=== PATIENT | male | born 1960 | race Caucasian/White ===

== ENCOUNTER 2017-09-04 14:36 | Observation (INO) ==
[2017-09-04] MEDS ORDERED: ACETAMINOPHEN 325 MG TABLET PO PRN (14:47)
[2017-09-04] MEDS ORDERED: ONDANSETRON 4 MG/2 ML VIAL IV PRN (14:47)
[2017-09-04] MEDS ORDERED: DEXTROSE 50% 25 GM/50 ML VIAL IV PRN (14:47)
[2017-09-04] MEDS ORDERED: GLUCAGON 1 MG VIAL IM PRN (14:47)
[2017-09-04] MEDS ORDERED: ZIPRASIDONE 20 MG/1 ML VIAL IM ONE (15:57)
[2017-09-04] MEDS ORDERED: hydrALAZINE 20 MG/1 ML VIAL IV PRN (16:36)
[2017-09-04 16:55] LABS: Basophils # 0.1 10*3/uL (0.0-0.2); Basophils % 0.9 % (0.0-0.8); Eosinophils # 0.3 10*3/uL (0.0-0.87); Eosinophils % 4.6 % (0.00-10.9); Hematocrit 46.6 VOL% (42.0-52.0); Hemoglobin 15.7 GM/DL (14.0-18.0); Immature Granulocytes % 0.1 %; Immature Granulocytes Absolute 0.01 #; Lymphocytes # 2.2 10*3/uL (1.4-4.0); Lymphocytes % 32.5 % (21.2-54.2); Mean Corpuscular HGB Conc 33.7 GM/DL (32-36); Mean Corpuscular Hemoglobin 29 PG (27-34); Mean Corpuscular Volume 86.6 FL (87-102); Mean Platelet Volume 10.3 FL (9.6-12.0); Monocytes # 0.6 10*3/uL (0.11-0.8); Monocytes % 8.5 % (1.7-12.7); Neutrophils # 3.6 10*3/uL (1.4-7.4); Neutrophils % 53.4 % (38.7-73.9); Platelet Count 237 T/CUMM (130-400); Red Blood Count 5.38 MC/CUMM (3.8-5.5); Red Cell Distribution Width 13.3 % (9.3-17.3); White Blood Count 6.8 T/CUMM (4-12)
[2017-09-04] MEDS: DOCUSATE SODIUM 100 MG CAPSULE PO SCH ×2 (17:22→21:27)
[2017-09-04] MEDS: PANTOPRAZOLE 40 MG TABLET PO SCH (17:23)
[2017-09-04] MEDS: INSULIN LISPRO 100 UNIT/ML SUBCUT SCH ×2 (17:25→23:44)
[2017-09-04 17:42] LABS: Alanine Aminotransferase 36 U/L (16-61); Albumin 3.5 G/DL (3.4-5.0); Alkaline Phosphatase 81 U/L (45-117); Aspartate Amino Transferase 13 U/L (0-37); Bilirubin,Total < 0.39 MG/DL (0.2-1.0); Blood Urea Nitrogen 15 MG/DL (7-18); Calcium 8.6 MG/DL (8.5-10.1); Glucose 64 MG/DL (74-106); Osmolality,Calculated 279.3 MOS/KG (273-304); Potassium 3.6 MMOL/L (3.5-5.1); Sodium 141 MMOL/L (136-145); Total Protein 6.8 G/DL (6.4-8.3)
[2017-09-04] MEDS ORDERED: AMITRIPTYLINE 25 MG TABLET PO SCH (21:00)
[2017-09-04] MEDS ORDERED: chlorproMAZINE INJ 25 MG in SODIUM CHLORIDE 0.9% 100 ML IV ONE (21:00)
[2017-09-04] MEDS ORDERED: METOPROLOL SUCCINATE XL 50 MG TABLET PO SCH (21:00)
[2017-09-04] MEDS: PITAVASTATIN 2 MG TABLET PO SCH (21:29)
[2017-09-04] MEDS: CILOSTAZOL 50 MG TABLET PO SCH (21:29)
[2017-09-05] MEDS: GLIMEPIRIDE 2 MG TABLET PO SCH (08:46)
[2017-09-05] MEDS: DOCUSATE SODIUM 100 MG CAPSULE PO SCH ×2 (08:46→20:33)
[2017-09-05] MEDS: PANTOPRAZOLE 40 MG TABLET PO SCH (08:46)
[2017-09-05] MEDS: INSULIN LISPRO 100 UNIT/ML SUBCUT SCH ×4 (08:51→20:35)
[2017-09-05] MEDS ORDERED: KETOROLAC 10 MG TABLET PO SCH (09:00)
[2017-09-05] MEDS ORDERED: VALSARTAN 80 MG TABLET PO SCH (09:00)
[2017-09-05] MEDS: SUMAtriptan 6 MG/0.5 ML VIAL SUBCUT PRN (09:25)
[2017-09-05 13:35] LABS: PT Patient Result 10.2 SECS
[2017-09-05] MEDS ORDERED: METOPROLOL SUCCINATE XL 100 MG TABLET PO SCH (15:43)
[2017-09-05] MEDS ORDERED: AMITRIPTYLINE 25 MG TABLET PO SCH (15:44)
[2017-09-05] MEDS: PITAVASTATIN 2 MG TABLET PO SCH (20:33)
[2017-09-05] MEDS: CILOSTAZOL 50 MG TABLET PO SCH (20:33)
[2017-09-06] MEDS: SUMAtriptan 6 MG/0.5 ML VIAL SUBCUT PRN (05:53)
[2017-09-06] MEDS: INSULIN LISPRO 100 UNIT/ML SUBCUT SCH ×3 (07:52→16:03)
[2017-09-06] MEDS: DOCUSATE SODIUM 100 MG CAPSULE PO SCH (08:37)
[2017-09-06] MEDS: PANTOPRAZOLE 40 MG TABLET PO SCH (08:37)
[2017-09-06] MEDS: GLIMEPIRIDE 2 MG TABLET PO SCH (08:37)
[2017-09-06 15:54] VITALS: BP 144/88
== END 2017-09-06 17:53 | disposition home or self-care (01) ==
LOC: N.4E
PROVIDERS: ADMIT Family Medicine; ATTEND Family Medicine

== ENCOUNTER 2019-02-19 09:06 | Inpatient (IN) ==
[~2019-02-19 09:06] MED LIST: AZILSARTAN MED CHLORTHALIDONE PO SCH; CEFUROXIME INJ 1,500 MG in SYRINGE 1 EACH IV ONE; DEXTROSE 50% 25 GM/50 ML VIAL IV PRN; GLUCAGON 1 MG VIAL IM PRN; NITROGLYCERIN SL 0.4 MG TABLET SL PRN; ONDANSETRON 4 MG TABLET PO PRN; PANTOPRAZOLE 40 MG TABLET PO PRN
[2019-02-19] MEDS ORDERED: CLORAZEPATE 3.75 MG TABLET PO PRN (10:38)
[2019-02-19] MEDS: ASCORBIC ACID 500 MG TABLET PO SCH ×3 (10:54→21:58)
[2019-02-19] MEDS: FINASTERIDE 5 MG TABLET PO SCH (10:54)
[2019-02-19 11:15] LABS: Basophils # 0.1 10*3/uL (0.0-0.2); Basophils % 0.6 % (0.0-0.8); Eosinophils # 0.3 10*3/uL (0.0-0.87); Eosinophils % 3.7 % (0.00-10.9); Hematocrit 49.6 VOL% (42.0-52.0); Immature Granulocytes % 0.2 %; Immature Granulocytes Absolute 0.02 #; Lymphocytes # 1.8 10*3/uL (1.4-4.0); Lymphocytes % 22.7 % (21.2-54.2); Mean Corpuscular HGB Conc 34.3 GM/DL (32-36); Mean Corpuscular Volume 89.4 FL (87-102); Mean Platelet Volume 10.3 FL (9.6-12.0); Monocytes % 6.5 % (1.7-12.7); Neutrophils % 66.3 % (38.7-73.9); Platelet Count 278 T/CUMM (130-400); Red Blood Count 5.55 MC/CUMM (3.8-5.5); Red Cell Distribution Width 12.9 % (9.3-17.3)
[2019-02-19] MEDS: ASPIRIN EC 81 MG TABLET PO SCH (11:18)
[2019-02-19] MEDS: CHLORHEXIDINE 0.12% ORAL RINSE 60 ML BOTTLE SWISH/SPIT SCH ×2 (11:20→21:58)
[2019-02-19] MEDS: SIMVASTATIN 20 MG TABLET PO SCH (11:23)
[2019-02-19 11:30] LABS: ABG Base Excess -0.1 MMOL/L (-2.5-2.5); ABG HCO3 24.3 MMOL/L (20-26); ABG Oxygen Saturation 96.2 % (95-100); ABG PCO2 36.8 MM HG (35-48); ABG PH 7.421 (7.35-7.45); ABG PO2 77.5 MM HG (80-95); ABG TCO2 20.1 MMOL/L (23-27)
[2019-02-19 11:44] LABS: Albumin 4.2 G/DL (3.4-5.0); Bilirubin,Total 0.8 MG/DL (0.2-1.0); Calcium 9.6 MG/DL (8.5-10.1); Osmolality,Calculated 278.8 MOS/KG (273-304); Total Protein 8.5 G/DL (6.4-8.3)
[2019-02-19] MEDS ORDERED: DIAZEPAM 5 MG TABLET PO ONE (14:11)
[2019-02-19] MEDS: CHLORHEXIDINE 4% SOLN 118 ML BOTTLE TOP SCH ×2 (17:37→21:58)
[2019-02-19] MEDS ORDERED: BISACODYL 10 MG SUPP RECTAL ONE (21:18)
[2019-02-20] MEDS ORDERED: PAPAVERINE 60 MG/2 ML VIAL ONE (04:25)
[2019-02-20] MEDS ORDERED: VANCOMYCIN 1,000 MG VIAL ONE (04:25)
[2019-02-20] MEDS ORDERED: VANCOMYCIN 500 MG VIAL ONE (04:25)
[2019-02-20] MEDS ORDERED: DIAZEPAM 5 MG TABLET PO ONE (05:30)
[2019-02-20] MEDS ORDERED: CEFUROXIME INJ 1,500 MG in SYRINGE 1 EACH IV ONE (05:30)
[2019-02-20] MEDS ORDERED: SUFentanil 250 MCG/5 ML AMP ONE (06:03)
[2019-02-20] MEDS ORDERED: MIDAZOLAM 10 MG/2 ML VIAL ONE (06:03)
[2019-02-20 07:42] LABS: ABG Base Excess -3.2 MMOL/L (-2.5-2.5); ABG HCO3 20.8 MMOL/L (20-26); ABG Oxygen Saturation 99.2 % (95-100); ABG PCO2 34.5 MM HG (35-48); ABG PH 7.399 (7.35-7.45); ABG TCO2 21.9 MMOL/L (23-27); Glucose Heart Surgery 146 MG/DL (74-106); Hemoglobin Heart Surgery 14.5 G/DL (14.0-18.0); Ionized Calcium Arterial 1.12 MMOL/L (1.21-1.46); PCO2 Patient Temp Arterial 34.5 MMHG; PH Patient Temp Arterial 7.399; Patient Temperature 37 CELCIUS; Potassium Heart/CVR 3.9 MMOL/L (3.5-5.1); Sodium Heart/CVR 136 MMOL/L (135-145)
[2019-02-20] MEDS ORDERED: PHENYLEPHRINE DRIP 40 MG/250 ML PREMIX IV ONE (07:50)
[2019-02-20] MEDS ORDERED: POTASSIUM CHLORIDE RIDER 100 ML IV ONE (07:50)
[2019-02-20 08:06] LABS: Apearance,Urine CLEAR (Clear); Bilirubin,Urine Negative (Negative); Blood, Urine Negative (Negative); Glucose,Urine (UA) Negative (Negative); Ketones,Urine Negative (Negative); Mucus,Urine Occasional /LPF (Occasional); Nitrite,Urine Negative (Negative); Protein,Urine Negative; RBC,Urine <1 /HPF (0-4); Urine Color Yellow (Yellow); Urine Specific Gravity 1.026 (1.001-1.035); Urine Urobilinogen < 2.0 EU/DL (0.2-1.0); WBC,Urine <1 /HPF (0-6)
[2019-02-20] MEDS ORDERED: Semaglutide [Ozempic] 0.5 MG SUBCUT SCH (09:00)
[2019-02-20] MEDS ORDERED: NITROGLYCERIN DRIP 50 MG/250 ML BOTTLE IV ONE (09:22)
[2019-02-20] MEDS ORDERED: HEPARIN/NACL 0.9% 2 UNITS/ML 500 ML IV ONE (09:22)
[2019-02-20] MEDS ORDERED: PHENYLEPHRINE DRIP 20 MG/250 ML PREMIX IV ONE (09:22)
[2019-02-20] MEDS ORDERED: AMINOCAPROIC ACID 5,000 MG/20 ML VIAL ONE ×2 (09:22)
[2019-02-20 09:25] LABS: Hematocrit Heart Surgery 27.5 PERCENT (42-52); Hemoglobin Heart Surgery 8.9 G/DL (14.0-18.0); PCO2 Patient Temp Venous 31.4 MM HG; PH Patient Temp Venous 7.458; PO2 Patient Temp Venous 39.5 MM HG; Potassium Heart/CVR 5.1 MMOL/L (3.5-5.1); VBG HCO3 23.4 MEQ/L (24-28); VBG Oxygen Saturation 86.2 %; VBG PCO2 34.6 MMHG (41-51); VBG PH 7.429; VBG PO2 45.4 MMHG (17-40)
[2019-02-20 09:53] LABS: Hematocrit Heart Surgery 30.7 PERCENT (42-52); Hemoglobin Heart Surgery 9.9 G/DL (14.0-18.0); PCO2 Patient Temp Venous 30.2 MM HG; PH Patient Temp Venous 7.488; PO2 Patient Temp Venous 42.5 MM HG; Potassium Heart/CVR 5.9 MMOL/L (3.5-5.1); VBG Base Excess 0.2 MEQ/L (0-4); VBG HCO3 24.5 MEQ/L (24-28); VBG Oxygen Saturation 90.5 %; VBG PH 7.443; VBG PO2 52.1 MMHG (17-40)
[2019-02-20 10:25] LABS: Hematocrit Heart Surgery 31.4 PERCENT (42-52); Hemoglobin Heart Surgery 10.2 G/DL (14.0-18.0); PCO2 Patient Temp Venous 30.3 MM HG; PH Patient Temp Venous 7.476; PO2 Patient Temp Venous 36.1 MM HG; Potassium Heart/CVR 6.2 MMOL/L (3.5-5.1); VBG Base Excess -0.5 MEQ/L (0-4); VBG HCO3 23.8 MEQ/L (24-28); VBG Oxygen Saturation 85.3 %; VBG PH 7.432; VBG PO2 44.5 MMHG (17-40)
[2019-02-20] MEDS ORDERED: MANNITOL 100 GM/500 ML BAG IV ONE (10:54)
[2019-02-20] MEDS ORDERED: HEPARIN 10,000 UNIT/10 ML VIAL ONE (10:55)
[2019-02-20] MEDS ORDERED: LIDOCAINE 2% 5 ML VIAL ONE ×2 (10:55→12:20)
[2019-02-20] MEDS ORDERED: methylPREDNISolone SOD SUC 1,000 MG/8 ML VIAL ONE (10:55)
[2019-02-20] MEDS ORDERED: SODIUM BICARBONATE 50 MEQ/50 ML VIAL IV ONE (10:55)
[2019-02-20] MEDS ORDERED: DEXTROSE 5% KCL 20 MEQ 20 MEQ/1,000 ML BAG IV ONE (10:55)
[2019-02-20] MEDS ORDERED: PROTAMINE SULFATE 50 MG/5 ML VIAL IV ONE ×3 (10:55→12:00)
[2019-02-20] MEDS ORDERED: MAGNESIUM SULFATE 5 GM/10 ML VIAL IV ONE (10:55)
[2019-02-20] MEDS ORDERED: PROTAMINE SULFATE 250 MG/25 ML VIAL IV ONE (10:55)
[2019-02-20] MEDS ORDERED: FUROSEMIDE 20 MG/2 ML VIAL ONE (10:55)
[2019-02-20] MEDS ORDERED: ALBUMIN 25% 25 GM/100 ML VIAL IV ONE (10:55)
[2019-02-20 11:07] LABS: ABG Base Excess -1.7 MMOL/L (-2.5-2.5); ABG Oxygen Saturation 99.3 % (95-100); ABG PCO2 37.6 MM HG (35-48); ABG PH 7.392 (7.35-7.45); ABG TCO2 20.7 MMOL/L (23-27); Glucose Heart Surgery 241 MG/DL (74-106); Hematocrit Heart Surgery 31.7 PERCENT (42-52); Hemoglobin Heart Surgery 10.3 G/DL (14.0-18.0); Ionized Calcium Arterial 1.16 MMOL/L (1.21-1.46); PCO2 Patient Temp Arterial 37.6 MMHG; PH Patient Temp Arterial 7.392; Patient Temperature 37 CELCIUS; Potassium Heart/CVR 4.4 MMOL/L (3.5-5.1); Sodium Heart/CVR 131 MMOL/L (135-145)
[2019-02-20] MEDS ORDERED: INSULIN REGULAR 100 UNIT/ML IV ONE (11:53)
[2019-02-20] MEDS ORDERED: ONDANSETRON 4 MG/2 ML VIAL IV PRN (11:53)
[2019-02-20] MEDS ORDERED: NITROPRUSSIDE 100 MG in DEXTROSE 5% 250 ML IV PRN (11:53)
[2019-02-20] MEDS ORDERED: MORPHINE 4 MG/1 ML VIAL IV PRN (11:53)
[2019-02-20] MEDS ORDERED: VECURONIUM 10 MG VIAL IV PRN ×2 (11:53)
[2019-02-20] MEDS ORDERED: MORPHINE 10 MG/1 ML VIAL IV PRN (11:53)
[2019-02-20] MEDS ORDERED: DEXTROSE 10% 250 ML BAG IV PRN ×2 (11:53)
[2019-02-20] MEDS ORDERED: PHENYLEPHRINE DRIP 40 MG/250 ML PREMIX IV PRN (11:53)
[2019-02-20] MEDS ORDERED: MAGNESIUM SULF RIDER 4 GM in PREMIX 1 EACH IV PRN (11:53)
[2019-02-20] MEDS ORDERED: MIDAZOLAM 10 MG/2 ML VIAL IV PRN (11:53)
[2019-02-20] MEDS ORDERED: LACTATED RINGERS 250 ML IV PRN (11:53)
[2019-02-20] MEDS ORDERED: ACETAMINOPHEN 650 MG SUPP RECTAL PRN (11:53)
[2019-02-20] MEDS ORDERED: CALCIUM CHLORIDE 1,000 MG/10 ML SYRINGE IV PRN (11:53)
[2019-02-20] MEDS ORDERED: MAGNESIUM SULF RIDER 2 GM in PREMIX 1 EACH IV PRN (11:53)
[2019-02-20] MEDS ORDERED: INSULIN REGULAR DRIP 100 ML IV SCH (12:00)
[2019-02-20] MEDS ORDERED: SODIUM CHLORIDE 0.45% 1,000 ML IV SCH ×2 (12:00)
[2019-02-20 12:11] LABS: ABG Base Excess -6.4 MMOL/L (-2.5-2.5); ABG HCO3 19.1 MMOL/L (20-26); ABG Oxygen Saturation 97.9 % (95-100); ABG PCO2 28.7 MM HG (35-48); ABG PH 7.392 (7.35-7.45); ABG PO2 96.2 MM HG (80-95); Glucose Heart Surgery 166 MG/DL (74-106); Hematocrit Heart Surgery 29.3 PERCENT (42-52); Hemoglobin Heart Surgery 9.5 G/DL (14.0-18.0); Potassium Heart/CVR 2.8 MMOL/L (3.5-5.1)
[2019-02-20 12:13] LABS: Basophils # 0.1 10*3/uL (0.0-0.2); Basophils % 0.4 % (0.0-0.8); Eosinophils # 0.1 10*3/uL (0.0-0.87); Eosinophils % 0.9 % (0.00-10.9); Hematocrit 32.1 VOL% (42.0-52.0); Immature Granulocytes % 0.7 %; Immature Granulocytes Absolute 0.09 #; Lymphocytes % 16.2 % (21.2-54.2); Mean Corpuscular HGB Conc 33.6 GM/DL (32-36); Mean Corpuscular Volume 89.2 FL (87-102); Mean Platelet Volume 10.6 FL (9.6-12.0); Monocytes % 6.5 % (1.7-12.7); Neutrophils % 75.3 % (38.7-73.9); Platelet Count 172 T/CUMM (130-400); Red Cell Distribution Width 12.9 % (9.3-17.3); White Blood Count 12.5 T/CUMM (4-12)
[2019-02-20 12:14] LABS: Hemoglobin 10.8 GM/DL (14.0-18.0)
[2019-02-20] MEDS ORDERED: LACTATED RINGERS 1,000 ML IV ONE (12:20)
[2019-02-20] MEDS ORDERED: VECURONIUM 10 MG VIAL IV ONE (12:20)
[2019-02-20] MEDS ORDERED: SODIUM CHLORIDE 0.9% 2,000 ML IV ONE (12:20)
[2019-02-20] MEDS ORDERED: SEVOFLURANE 1 UNIT/15 MINUTE INH ONE (12:20)
[2019-02-20] MEDS ORDERED: CALCIUM CHLORIDE 1,000 MG/10 ML VIAL IV ONE (12:20)
[2019-02-20] MEDS ORDERED: SODIUM CHLORIDE 0.9% 100 ML IV ONE (12:20)
[2019-02-20] MEDS ORDERED: ETOMIDATE 40 MG/20 ML VIAL IV ONE (12:20)
[2019-02-20] MEDS ORDERED: SODIUM CHLORIDE 0.9% 250 ML IV ONE (12:20)
[2019-02-20 12:22] LABS: INR 1.5; PT Patient Result 16.1 SECS (9.6-12.2); Partial Thromboplastin Time 29.7 SECS (20.8-36.0)
[2019-02-20 12:29] LABS: ABG Base Excess -2.5 MMOL/L (-2.5-2.5); ABG HCO3 22.4 MMOL/L (20-26); ABG PCO2 32.5 MM HG (35-48); ABG PH 7.422 (7.35-7.45); ABG PO2 94.8 MM HG (80-95); ABG TCO2 18.9 MMOL/L (23-27); Glucose Heart Surgery 202 MG/DL (74-106); Hematocrit Heart Surgery 34.9 PERCENT (42-52); Hemoglobin Heart Surgery 11.3 G/DL (14.0-18.0); Potassium Heart/CVR 3.6 MMOL/L (3.5-5.1)
[2019-02-20 12:35] LABS: CKMB % 5.9 %
[2019-02-20 12:40] LABS: Albumin 2.8 G/DL (3.4-5.0); Bilirubin,Total 1.1 MG/DL (0.2-1.0); Calcium 7.6 MG/DL (8.5-10.1); Osmolality,Calculated 283.5 MOS/KG (273-304); Total Protein 4.9 G/DL (6.4-8.3)
[2019-02-20] MEDS: POTASSIUM CHLORIDE RIDER 20 MEQ in PREMIX 1 EACH IV PRN ×4 (12:41→19:32)
[2019-02-20 12:46] LABS: Troponin I 2.79 NG/ML (0.00-0.045)
[2019-02-20] MEDS: LACTATED RINGERS 1,000 ML IV PRN ×3 (13:12→17:19)
[2019-02-20] MEDS: POTASSIUM CHLORIDE RIDER 10 MEQ in PREMIX 1 EACH IV PRN ×3 (13:21→20:25)
[2019-02-20 14:20] LABS: ABG Base Excess -1.7 MMOL/L (-2.5-2.5); ABG Oxygen Saturation 98.9 % (95-100); ABG PCO2 33.6 MM HG (35-48); ABG PH 7.424 (7.35-7.45); ABG TCO2 19.5 MMOL/L (23-27); Glucose Heart Surgery 199 MG/DL (74-106); Hemoglobin Heart Surgery 11.7 G/DL (14.0-18.0); Potassium Heart/CVR 3.7 MMOL/L (3.5-5.1)
[2019-02-20 16:11] LABS: ABG Base Excess -1.7 MMOL/L (-2.5-2.5); ABG Oxygen Saturation 98.4 % (95-100); ABG PCO2 38.5 MM HG (35-48); ABG PH 7.385 (7.35-7.45); ABG TCO2 20.6 MMOL/L (23-27); Glucose Heart Surgery 185 MG/DL (74-106); Hematocrit Heart Surgery 35.6 PERCENT (42-52); Hemoglobin Heart Surgery 11.5 G/DL (14.0-18.0); Potassium Heart/CVR 4.1 MMOL/L (3.5-5.1)
[2019-02-20] MEDS: INSULIN REGULAR 100 UNIT/ML IV PRN ×2 (16:19→17:54)
[2019-02-20] MEDS: ALBUMIN 5% 12.5 GM in PREMIX 1 EACH IV PRN ×2 (16:26→16:41)
[2019-02-20 17:34] LABS: ABG HCO3 21.1 MMOL/L (20-26); ABG Oxygen Saturation 97.7 % (95-100); ABG PCO2 39.5 MM HG (35-48); ABG PH 7.343 (7.35-7.45); ABG PO2 99.6 MM HG (80-95); ABG TCO2 19.6 MMOL/L (23-27); Glucose Heart Surgery 164 MG/DL (74-106); Hematocrit Heart Surgery 30.4 PERCENT (42-52); Hemoglobin Heart Surgery 9.8 G/DL (14.0-18.0); Potassium Heart/CVR 3.6 MMOL/L (3.5-5.1)
[2019-02-20] MEDS: CEFUROXIME INJ 1,500 MG in SYRINGE 1 EACH IV SCH (18:58)
[2019-02-20 19:25] LABS: ABG Base Excess -3.9 MMOL/L (-2.5-2.5); ABG HCO3 21.1 MMOL/L (20-26); ABG Oxygen Saturation 97.7 % (95-100); ABG PCO2 38.1 MM HG (35-48); ABG PH 7.354 (7.35-7.45); ABG PO2 97.9 MM HG (80-95); ABG TCO2 19.3 MMOL/L (23-27); Glucose Heart Surgery 147 MG/DL (74-106); Hematocrit Heart Surgery 32.1 PERCENT (42-52); Hemoglobin Heart Surgery 10.4 G/DL (14.0-18.0); Potassium Heart/CVR 3.5 MMOL/L (3.5-5.1)
[2019-02-20] MEDS: MIDAZOLAM 2 MG/2 ML VIAL IV PRN (19:51)
[2019-02-20] MEDS: DEXMEDETOMIDINE 200 MCG in SODIUM CHLORIDE 0.9% 48 ML IV PRN ×2 (19:59→22:40)
[2019-02-20] MEDS ORDERED: CHLORHEXIDINE 0.12% ORAL RINSE 60 ML BOTTLE SWISH/SPIT SCH (21:00)
[2019-02-20 23:16] LABS: CKMB % 2.3 %
[2019-02-20 23:19] LABS: Troponin I 2.85 NG/ML (0.00-0.045)
[2019-02-21] MEDS: POTASSIUM CHLORIDE RIDER 20 MEQ in PREMIX 1 EACH IV PRN ×2 (00:13→04:13)
[2019-02-21] MEDS: POTASSIUM CHLORIDE RIDER 10 MEQ in PREMIX 1 EACH IV PRN (02:36)
[2019-02-21] MEDS: DEXMEDETOMIDINE 200 MCG in SODIUM CHLORIDE 0.9% 48 ML IV PRN (02:45)
[2019-02-21 03:27] LABS: ABG Base Excess -3.1 MMOL/L (-2.5-2.5); ABG HCO3 21.8 MMOL/L (20-26); ABG Oxygen Saturation 98.2 % (95-100); ABG PCO2 35.6 MM HG (35-48); ABG PH 7.385 (7.35-7.45); ABG TCO2 19.3 MMOL/L (23-27); Glucose Heart Surgery 124 MG/DL (74-106); Hematocrit Heart Surgery 32.2 PERCENT (42-52); Hemoglobin Heart Surgery 10.4 G/DL (14.0-18.0); Potassium Heart/CVR 4.4 MMOL/L (3.5-5.1)
[2019-02-21 03:32] LABS: Basophils % 0.1 % (0.0-0.8); Hematocrit 29.9 VOL% (42.0-52.0); Hemoglobin 10.1 GM/DL (14.0-18.0); Immature Granulocytes % 0.5 %; Immature Granulocytes Absolute 0.08 #; Lymphocytes # 1.1 10*3/uL (1.4-4.0); Lymphocytes % 6.2 % (21.2-54.2); Mean Corpuscular HGB Conc 33.8 GM/DL (32-36); Mean Corpuscular Volume 90.1 FL (87-102); Mean Platelet Volume 10.8 FL (9.6-12.0); Monocytes % 4.9 % (1.7-12.7); Neutrophils % 88.3 % (38.7-73.9); Platelet Count 189 T/CUMM (130-400); Red Blood Count 3.32 MC/CUMM (3.8-5.5); Red Cell Distribution Width 13.2 % (9.3-17.3); White Blood Count 17.6 T/CUMM (4-12)
[2019-02-21 03:50] LABS: Albumin 3.2 G/DL (3.4-5.0); Bilirubin,Direct 0.32 MG/DL (0.0-0.20); Bilirubin,Total 0.7 MG/DL (0.2-1.0); Calcium 7.6 MG/DL (8.5-10.1); Osmolality,Calculated 285.1 MOS/KG (273-304); Total Protein 5.6 G/DL (6.4-8.3)
[2019-02-21 04:06] LABS: CKMB % 1.9 %
[2019-02-21 04:10] LABS: Troponin I 2.31 NG/ML (0.00-0.045)
[2019-02-21] MEDS ORDERED: FUROSEMIDE 40 MG/4 ML VIAL IV ONE (04:32)
[2019-02-21] MEDS: MIDAZOLAM 2 MG/2 ML VIAL IV PRN (06:25)
[2019-02-21] MEDS: CEFUROXIME INJ 1,500 MG in SYRINGE 1 EACH IV SCH (06:41)
[2019-02-21] MEDS ORDERED: DEXTROSE 50% 25 GM/50 ML VIAL IV PRN (06:53)
[2019-02-21] MEDS ORDERED: DEXTROSE 10% 1,000 ML BAG IV PRN (06:53)
[2019-02-21] MEDS ORDERED: GLUCAGON 1 MG VIAL IM PRN ×2 (06:53)
[2019-02-21] MEDS ORDERED: MAGNESIUM SULF RIDER 4 GM in PREMIX 1 EACH IV PRN (06:53)
[2019-02-21] MEDS ORDERED: ALUMINUM/MAGNES/SIMETH MAX STR 30 ML UDCUP PO PRN (06:53)
[2019-02-21] MEDS ORDERED: MAGNESIUM SULF RIDER 2 GM in PREMIX 1 EACH IV PRN (06:53)
[2019-02-21] MEDS ORDERED: ACETAMINOPHEN 325 MG TABLET PO PRN (06:53)
[2019-02-21] MEDS ORDERED: ZALEPLON 5 MG CAPSULE PO PRN (06:53)
[2019-02-21] MEDS ORDERED: MAGNESIUM HYDROXIDE SUSP 30 ML UDCUP PO PRN (06:53)
[2019-02-21] MEDS ORDERED: ONDANSETRON 4 MG/2 ML VIAL IV PRN (06:53)
[2019-02-21] MEDS ORDERED: METOPROLOL SUCCINATE XL 25 MG TABLET PO SCH (09:00)
[2019-02-21] MEDS ORDERED: PANTOPRAZOLE 40 MG TABLET PO SCH (09:00)
[2019-02-21] MEDS: SODIUM CHLOR 0.45% KCL 20 MEQ 20 MEQ/1,000 ML BAG IV SCH (09:02)
[2019-02-21] MEDS: FINASTERIDE 5 MG TABLET PO SCH ×2 (09:03→10:17)
[2019-02-21] MEDS: CILOSTAZOL 100 MG TABLET PO SCH (09:03)
[2019-02-21] MEDS: SIMVASTATIN 20 MG TABLET PO SCH ×2 (09:03→10:17)
[2019-02-21] MEDS: ASCORBIC ACID 500 MG TABLET PO SCH ×3 (09:04→20:49)
[2019-02-21] MEDS: PANTOPRAZOLE 40 MG TABLET PO SCH (09:04)
[2019-02-21] MEDS: ASPIRIN EC 81 MG TABLET PO SCH ×2 (09:04→10:16)
[2019-02-21] MEDS: DOCUSATE SODIUM 100 MG CAPSULE PO SCH (09:04)
[2019-02-21] MEDS: KETOROLAC 30 MG/1 ML VIAL IV PRN ×2 (09:05→20:51)
[2019-02-21] MEDS: FERROUS SULFATE 325 MG TABLET PO SCH (09:36)
[2019-02-21] MEDS: CHLORHEXIDINE 0.12% ORAL RINSE 60 ML BOTTLE SWISH/SPIT SCH ×3 (09:36→20:50)
[2019-02-21] MEDS ORDERED: ALBUMIN 5% 25 GM in PREMIX 1 EACH IV ONE (09:46)
[2019-02-21] MEDS ORDERED: ALBUMIN 5% 12.5 GM/250 ML VIAL IV ONE (09:46)
[2019-02-21] MEDS: CHLORHEXIDINE 4% SOLN 118 ML BOTTLE TOP SCH (10:15)
[2019-02-21] MEDS: SODIUM CHLORIDE 0.9% 1,000 ML IV SCH ×2 (10:15→10:16)
[2019-02-21] MEDS: INSULIN REGULAR 100 UNIT/ML SUBCUT SCH ×3 (14:07→20:49)
[2019-02-21] MEDS ORDERED: PHENYLEPHRINE DRIP 40 MG/250 ML PREMIX IV PRN (14:15)
[2019-02-21] MEDS ORDERED: CEFUROXIME INJ 1,500 MG in SYRINGE 1 EACH IV ONE (19:41)
[2019-02-22] MEDS ORDERED: FUROSEMIDE 40 MG/4 ML VIAL IV ONE (06:00)
[2019-02-22] MEDS ORDERED: ONDANSETRON 4 MG TABLET PO PRN (06:25)
[2019-02-22] MEDS ORDERED: PANTOPRAZOLE 40 MG TABLET PO PRN (06:25)
[2019-02-22 06:55] LABS: Alanine Aminotransferase 25 U/L (16-61); Albumin 3.1 G/DL (3.4-5.0); Alkaline Phosphatase 43 U/L (45-117); Aspartate Amino Transferase 22 U/L (0-37); Bilirubin,Indirect 0.4 MG/DL (0.0-1.0); Blood Urea Nitrogen 29 MG/DL (7-18); Calcium 7.6 MG/DL (8.5-10.1); Estimated Glom Filtration Rate 62 ML/MIN; Glucose 155 MG/DL (74-106); Osmolality,Calculated 289.3 MOS/KG (273-304); Total Protein 5.6 G/DL (6.4-8.3)
[2019-02-22 07:06] LABS: Basophils % 0.1 % (0.0-0.8); Hematocrit 29.3 VOL% (42.0-52.0); Hemoglobin 9.6 GM/DL (14.0-18.0); Immature Granulocytes % 1.4 %; Immature Granulocytes Absolute 0.26 #; Lymphocytes # 0.9 10*3/uL (1.4-4.0); Mean Corpuscular HGB Conc 32.8 GM/DL (32-36); Mean Corpuscular Volume 93.3 FL (87-102); Mean Platelet Volume 11.2 FL (9.6-12.0); Neutrophils % 87.5 % (38.7-73.9); Platelet Count 170 T/CUMM (130-400); Red Blood Count 3.14 MC/CUMM (3.8-5.5); Red Cell Distribution Width 13.9 % (9.3-17.3); White Blood Count 18.2 T/CUMM (4-12)
[2019-02-22] MEDS: ASCORBIC ACID 500 MG TABLET PO SCH ×2 (08:18→22:18)
[2019-02-22] MEDS: FERROUS SULFATE 325 MG TABLET PO SCH (08:18)
[2019-02-22] MEDS: CILOSTAZOL 100 MG TABLET PO SCH (08:18)
[2019-02-22] MEDS: ASPIRIN EC 81 MG TABLET PO SCH (08:18)
[2019-02-22] MEDS: PANTOPRAZOLE 40 MG TABLET PO SCH (08:18)
[2019-02-22] MEDS: METOPROLOL SUCCINATE XL 25 MG TABLET PO SCH (08:19)
[2019-02-22] MEDS: DOCUSATE SODIUM 100 MG CAPSULE PO SCH (08:19)
[2019-02-22] MEDS: SIMVASTATIN 20 MG TABLET PO SCH (08:19)
[2019-02-22] MEDS: FINASTERIDE 5 MG TABLET PO SCH (08:19)
[2019-02-22] MEDS: CHLORHEXIDINE 0.12% ORAL RINSE 60 ML BOTTLE SWISH/SPIT SCH ×2 (08:20→22:18)
[2019-02-22] MEDS: INSULIN REGULAR 100 UNIT/ML SUBCUT SCH ×4 (08:33→22:17)
[2019-02-22] MEDS: KETOROLAC 30 MG/1 ML VIAL IV PRN ×2 (08:35→22:10)
[2019-02-22] MEDS ORDERED: FINASTERIDE 5 MG TABLET PO SCH (09:00)
[2019-02-22] MEDS ORDERED: ASCORBIC ACID 500 MG TABLET PO SCH (09:00)
[2019-02-22] MEDS ORDERED: SIMVASTATIN 20 MG TABLET PO SCH (09:00)
[2019-02-22] MEDS ORDERED: ASPIRIN EC 81 MG TABLET PO SCH (09:00)
[2019-02-22] MEDS: SODIUM CHLOR 0.45% KCL 20 MEQ 20 MEQ/1,000 ML BAG IV SCH (10:18)
[2019-02-22] MEDS: oxyCODONE/ACETAMINOPHEN 5-325 MG TABLET PO PRN (11:30)
[2019-02-23] MEDS: ONDANSETRON 4 MG TABLET PO PRN (00:30)
[2019-02-23] MEDS: oxyCODONE/ACETAMINOPHEN 5-325 MG TABLET PO PRN ×2 (00:45→16:39)
[2019-02-23 05:29] LABS: Eosinophils # 0.1 10*3/uL (0.0-0.87); Eosinophils % 0.4 % (0.00-10.9); Hematocrit 28.5 VOL% (42.0-52.0); Hemoglobin 9.6 GM/DL (14.0-18.0); Immature Granulocytes % 0.7 %; Immature Granulocytes Absolute 0.08 #; Lymphocytes % 17.8 % (21.2-54.2); Mean Corpuscular HGB Conc 33.7 GM/DL (32-36); Mean Corpuscular Volume 89.9 FL (87-102); Mean Platelet Volume 11.1 FL (9.6-12.0); Monocytes % 7.3 % (1.7-12.7); Neutrophils % 73.8 % (38.7-73.9); Platelet Count 150 T/CUMM (130-400); Red Blood Count 3.17 MC/CUMM (3.8-5.5); Red Cell Distribution Width 13.2 % (9.3-17.3); White Blood Count 11.4 T/CUMM (4-12)
[2019-02-23 05:55] LABS: Alanine Aminotransferase 25 U/L (16-61); Albumin 2.8 G/DL (3.4-5.0); Alkaline Phosphatase 41 U/L (45-117); Aspartate Amino Transferase 15 U/L (0-37); Bilirubin,Indirect 0.4 MG/DL (0.0-1.0); Blood Urea Nitrogen 31 MG/DL (7-18); Calcium 7.8 MG/DL (8.5-10.1); Estimated Glom Filtration Rate 68 ML/MIN; Glucose 104 MG/DL (74-106); Osmolality,Calculated 285.4 MOS/KG (273-304); Total Protein 5.5 G/DL (6.4-8.3)
[2019-02-23 05:57] LABS: Troponin I 0.796 NG/ML (0.00-0.045)
[2019-02-23] MEDS: METOPROLOL SUCCINATE XL 25 MG TABLET PO SCH (09:26)
[2019-02-23] MEDS: ASCORBIC ACID 500 MG TABLET PO SCH ×2 (09:27→22:51)
[2019-02-23] MEDS: ASPIRIN EC 81 MG TABLET PO SCH (09:27)
[2019-02-23] MEDS: CILOSTAZOL 100 MG TABLET PO SCH (09:27)
[2019-02-23] MEDS: FINASTERIDE 5 MG TABLET PO SCH (09:27)
[2019-02-23] MEDS: FERROUS SULFATE 325 MG TABLET PO SCH (09:28)
[2019-02-23] MEDS: DOCUSATE SODIUM 100 MG CAPSULE PO SCH (09:28)
[2019-02-23] MEDS: SIMVASTATIN 20 MG TABLET PO SCH (09:28)
[2019-02-23] MEDS: PANTOPRAZOLE 40 MG TABLET PO SCH (09:28)
[2019-02-23] MEDS: CHLORHEXIDINE 0.12% ORAL RINSE 60 ML BOTTLE SWISH/SPIT SCH ×2 (09:29→22:53)
[2019-02-23] MEDS: POTASSIUM CHLORIDE 20 MEQ TABLET PO PRN ×2 (09:30→11:34)
[2019-02-23] MEDS: KETOROLAC 30 MG/1 ML VIAL IV PRN ×2 (10:03→20:27)
[2019-02-23] MEDS: INSULIN REGULAR 100 UNIT/ML SUBCUT SCH ×4 (11:33→22:55)
[2019-02-24] MEDS: ASPIRIN EC 81 MG TABLET PO SCH (08:57)
[2019-02-24] MEDS: METOPROLOL SUCCINATE XL 25 MG TABLET PO SCH (08:58)
[2019-02-24] MEDS: CILOSTAZOL 100 MG TABLET PO SCH (08:58)
[2019-02-24] MEDS: ASCORBIC ACID 500 MG TABLET PO SCH ×2 (08:58→21:17)
[2019-02-24] MEDS: DOCUSATE SODIUM 100 MG CAPSULE PO SCH (08:58)
[2019-02-24] MEDS: FINASTERIDE 5 MG TABLET PO SCH (08:58)
[2019-02-24] MEDS: FERROUS SULFATE 325 MG TABLET PO SCH (08:58)
[2019-02-24] MEDS: PANTOPRAZOLE 40 MG TABLET PO SCH (08:59)
[2019-02-24] MEDS: INSULIN REGULAR 100 UNIT/ML SUBCUT SCH ×4 (08:59→21:21)
[2019-02-24] MEDS: CHLORHEXIDINE 0.12% ORAL RINSE 60 ML BOTTLE SWISH/SPIT SCH ×2 (08:59→21:20)
[2019-02-24] MEDS: SIMVASTATIN 20 MG TABLET PO SCH (08:59)
[2019-02-24] MEDS: ONDANSETRON 4 MG TABLET PO PRN (14:28)
[2019-02-24] MEDS: oxyCODONE/ACETAMINOPHEN 5-325 MG TABLET PO PRN (21:18)
[2019-02-25 05:24] LABS: Basophils % 0.1 % (0.0-0.8); Eosinophils # 0.5 10*3/uL (0.0-0.87); Eosinophils % 5.1 % (0.00-10.9); Hematocrit 30.9 VOL% (42.0-52.0); Hemoglobin 10.3 GM/DL (14.0-18.0); Immature Granulocytes % 0.7 %; Immature Granulocytes Absolute 0.06 #; Lymphocytes # 1.4 10*3/uL (1.4-4.0); Lymphocytes % 15.5 % (21.2-54.2); Mean Corpuscular HGB Conc 33.3 GM/DL (32-36); Mean Corpuscular Volume 90.9 FL (87-102); Mean Platelet Volume 11.1 FL (9.6-12.0); Monocytes % 9.3 % (1.7-12.7); Neutrophils % 69.3 % (38.7-73.9); Platelet Count 202 T/CUMM (130-400); Red Cell Distribution Width 12.8 % (9.3-17.3); White Blood Count 8.9 T/CUMM (4-12)
[2019-02-25 05:46] LABS: Alanine Aminotransferase 44 U/L (16-61); Albumin 2.6 G/DL (3.4-5.0); Alkaline Phosphatase 58 U/L (45-117); Aspartate Amino Transferase 15 U/L (0-37); Bilirubin,Indirect 0.7 MG/DL (0.0-1.0); Blood Urea Nitrogen 20 MG/DL (7-18); Calcium 8.1 MG/DL (8.5-10.1); Estimated Glom Filtration Rate 82 ML/MIN; Glucose 114 MG/DL (74-106); Osmolality,Calculated 286.1 MOS/KG (273-304); Total Protein 5.6 G/DL (6.4-8.3)
[2019-02-25 05:47] LABS: Troponin I 0.213 NG/ML (0.00-0.045)
[2019-02-25 08:20] VITALS: BP 124/60
[2019-02-25] MEDS: INSULIN REGULAR 100 UNIT/ML SUBCUT SCH (08:36)
[2019-02-25] MEDS: PANTOPRAZOLE 40 MG TABLET PO SCH (08:37)
[2019-02-25] MEDS: FERROUS SULFATE 325 MG TABLET PO SCH ×2 (08:37→08:39)
[2019-02-25] MEDS: METOPROLOL SUCCINATE XL 25 MG TABLET PO SCH (08:37)
[2019-02-25] MEDS: CHLORHEXIDINE 0.12% ORAL RINSE 60 ML BOTTLE SWISH/SPIT SCH (08:37)
[2019-02-25] MEDS: ASPIRIN EC 81 MG TABLET PO SCH (08:37)
[2019-02-25] MEDS: ASCORBIC ACID 500 MG TABLET PO SCH (08:37)
[2019-02-25] MEDS: DOCUSATE SODIUM 100 MG CAPSULE PO SCH (08:37)
[2019-02-25] MEDS: FINASTERIDE 5 MG TABLET PO SCH (08:37)
[2019-02-25] MEDS: SIMVASTATIN 20 MG TABLET PO SCH (08:37)
[2019-02-25] MEDS: CILOSTAZOL 100 MG TABLET PO SCH (08:37)
[2019-03-20] MEDS ORDERED: FREMANEZUMAB VFRM 225 MG SUBCUT SCH (09:00)
== END 2019-02-25 10:53 | disposition home or self-care (01) | DRG 236 ==
LOC: N.TELEN 09:06 → N.CVR 02-20 07:03 → N.TELEN 02-20 07:11 → N.CVR 02-20 11:31 → N.ICU 02-21 09:27 → N.TELES 02-22 13:00